=== PATIENT | male | born 1960 | race Hispanic/Latino ===

== ENCOUNTER 2017-01-03 09:21 | Emergency (ER) | payer OTHER ==
[2017-01-03 09:30] VITALS: BMI 25.9
--- NOTE | 2017-01-03 09:43 | ED PDOC ---
Arrival/HPI - General Chief Complaint: Abnormal Skin Integrity Time Seen by Provider: 01/03/17 09:43 Historian: Patient - History of Present Illness Narrative History of Present Illness (Text): 01/03/17 09:43 This 56 yo male with pmh dm, presents to this ED c/o left axilla abscess x 7 days. Patient stated abscess became painful x 3 days. Patient denies drainge or similar symptoms in the past. Denies other complains. Time/Duration: 1 week Symptom Onset: Gradual Symptom Course: Worsening Quality: Aching Context: Home Past Medical History - Provider Review Nursing Documentation Reviewed: Yes - Endocrine/Metabolic Hx Diabetes Mellitus Type 2: Yes - Psychiatric Hx Substance Use: No - Surgical History Hx Orthopedic Surgery: Yes (shoulder) Other/Comment: Right leg vericous vein sx Family/Social History - Physician Review Nursing Documentation Reviewed: Yes Family/Social History: No Known Family HX Smoking Status: Unknown If Ever Smoked Hx Alcohol Use: No Hx Substance Use: No Allergies/Home Meds Allergies/Adverse Reactions: Allergies No Known Allergies Allergy (Verified 01/03/17 09:30) Home Medications: Home Meds Medication Instructions Recorded Confirmed Repaglinide [Repaglinide] 2 mg PO TID 04/29/16 01/03/17 Sitagliptin Phos/Metformin HCl 1 tab PO BID 04/29/16 01/03/17 [Janumet 50-1,000 mg Tablet] Canagliflozin [Invokana] 0 mg PO DAILY 01/03/17 01/03/17 Review of Systems - Review of Systems Constitutional: Normal. absent: Fatigue, Weight Change, Fevers Eyes: Normal ENT: Normal Respiratory: Normal. absent: SOB, Cough Cardiovascular: Normal. absent: Chest Pain Gastrointestinal: Normal. absent: Abdominal Pain, Nausea, Vomiting Genitourinary Male: Normal. absent: Dysuria, Frequency, Hematuria Musculoskeletal: Normal Skin: Abscess Neurological: Normal Endocrine: Normal Hemo/Lymphatic: Normal Psychiatric: Normal Physical Exam Vital Signs Temp Pulse Resp BP Pulse Ox 01/03/17 10:26 98.1 F 90 15 138/91 H 96 01/03/17 10:23 98.1 F 01/03/17 09:50 98.1 F 96 H 17 156/98 H 96 01/03/17 09:21 98.4 F 101 H 16 126/84 98 Temperature: Afebrile Blood Pressure: Normal Pulse: Regular Respiratory Rate: Normal Appearance: Positive for: Well-Appearing, Non-Toxic, Comfortable Pain Distress: None Mental Status: Positive for: Alert and Oriented X 3 - Systems Exam Head: Present: Atraumatic, Normocephalic Pupils: Present: PERRL Extroacular Muscles: Present: EOMI Conjunctiva: Present: Normal Mouth: Present: Moist Mucous Membranes Neck: Present: Normal Range of Motion Respiratory/Chest: Present: Clear to Auscultation, Good Air Exchange. No: Respiratory Distress, Accessory Muscle Use Cardiovascular: Present: Regular Rate and Rhythm, Normal S1, S2. No: Murmurs Abdomen: Present: Normal Bowel Sounds. No: Tenderness, Distention, Peritoneal Signs Back: Present: Normal Inspection Upper Extremity: Present: Normal Inspection, Normal ROM, Neurovascularly Intact , Capillary Refill < 2s. No: Cyanosis, Edema Lower Extremity: Present: Normal Inspection. No: Edema Neurological: Present: GCS=15, CN II-XII Intact, Speech Normal Skin: Present: Warm, Dry, Normal Color, Abscess ((+) left axillary abscess, approx. 2 cm. No cellualitis. No streaking erythema, or drainage). No: Rashes Psychiatric: Present: Alert, Oriented x 3, Normal Insight, Normal Concentration Medical Decision Making ED Course and Treatment: 01/03/17 10:20 Re-evaluation. Patient feels better. Discussed results and plan with patient who expresses understanding. All questions answered and there is agreement with the plan to discharge home with instructions. Patient stable for discharge. Return if symptoms persist or worsen Patient was recommended to return to ED of see PMD in 2 days for wound check and wound culture result Re-evaluation Time: 10:20 Reassessment Condition: Re-examined, Improved - Medication Orders Current Medication Orders: Discontinued Medications Ibuprofen (Motrin Tab) 600 mg PO STAT STA Stop: 01/03/17 10:21 Last Admin: 01/03/17 10:23 Dose: 600 MG MAR Pain/Vitals Document 01/03/17 10:23 [facility] (Rec: 01/03/17 10:25 [email or web address]) Pain Reassessment Is This A Pain ReAssessment? No Sleep Is patient sleeping during reassessment? No Presence of Pain Presence of Pain Yes Pain Scale Used Pain Scale Used Numeric Location Left, Right or Bilateral Left Upper or Lower Upper Pain Location Body Site Arm Description Throbbing Intensity 0 Vitals Temperature (97.6 F-99.6 F) 98.1 F Trimethoprim/Sulfamethoxazole (Bactrim Ds Tab) 1 tab PO STAT STA PRN Reason: Protocol Stop: 01/03/17 09:54 Last Admin: 01/03/17 10:11 Dose: 1 TAB - Procedure PROCEDURE NOTE (Text): 01/03/17 10:10 PROCEDURE: INCISION & DRAINAGE Performed by the emergency provider Indication: Abscess Location: LEFT AXILLA Preparation: The area was prepped and draped in the usual sterile fashion and was cleansed with Betadine. Local infiltration of Lidocaine 1% with Epi, approx , 1 cc was used for anesthesia. Procedure: The most fluctuant portion of the abscess was incised with a #11 scalpel. Approximately 3 mL of purulent material was obtained. The abscess was packed. A dressing was applied by me. Post-Procedure: On exam the abscess is notably less fluctuant. The patient tolerated the procedure well, and there were no complications. Cultured: YES Disposition/Present on Arrival - Present on Arrival Any Indicators Present on Arrival: No History of DVT/PE: No History of Uncontrolled Diabetes: No Urinary Catheter: No History of Decub. Ulcer: No History Surgical Site Infection Following: None - Disposition Have Diagnosis and Disposition been Completed?: Yes Diagnosis: Abscess of axillary region Disposition: HOME/ ROUTINE Disposition Time: 10:21 Patient Plan: Discharge Condition: GOOD Discharge Instructions (ExitCare): Abscess (ED), Abscess Incision and Drainage (ED) Additional Instructions: Call private doctor for follow up visit in 2 days for wound check, packing removal, and wound culture report. Return to emergency if wound worsen, painful , actively bleeding or worsen symptoms. Take medication as instructed. Prescriptions: Sulfamethoxazole/Trimethoprim [Bactrim DS 800 mg-160 mg] 1 tab PO BID #14 tab Naproxen 500 mg PO BID PRN #14 tab PRN Reason: Pain, Severe (8-10) Referrals: Darek Mendes MD [Primary Care Provider] - Follow up with primary Forms: WORK NOTE
[2017-01-03] MEDS ORDERED: Tmp-Smz 800 mg-160 mg DS Tab PO STA (09:53)
[2017-01-03 09:54] VITALS: TEMP 98.1; O2SAT 96
[2017-01-03 10:36] VITALS: BP 138/91; PULSE 90; RESP 15
== END 2017-01-03 10:39 | disposition home or self-care (01) ==
LOC: ED 09:21
DX: L02.412 Cutaneous abscess of left axilla (principal)